=== PATIENT | male | born 1970 | race Caucasian/White ===

== ENCOUNTER 2018-03-01 19:20 | Emergency (ER) | payer OTHER ==
[~2018-03-01] VITALS: Ht 157.5 cm; Wt 68.9 kg
--- NOTE | 2018-03-01 19:36 | ED.ADGEN ---
Past History Past Medical History: Arthritis, Diverticulitis, Seizure, Other Past Surgical History: Other Smoking: Cigarettes Alcohol Use: Sober Drug Use: Marijuana (Hx in past), Methamphetamine (hx) Adult General Chief Complaint Chief Complaint ".. 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 Pt. reportedly had a seizure in shower. Seizure supposedly tonic-clonic. Seizure lasted several minutes. Onset was at 1700 hrs. No specific ill contacts. No hx of fevers. . No recent travel. No recent trauma. Patient does not take any seizure meds. Patient has been seen by Dr. Glasgow, and has follow up apt.. for EEG. She denies any dysrhythmia prior to the seizure onset. Review of Systems Review of Systems Constitutional: Denies fever or chills [] Eyes: Denies change in visual acuity, redness, or eye pain [] HENT: Denies nasal congestion or sore throat [] Respiratory: Denies cough or shortness of breath [] Cardiovascular: No additional information not addressed in HPI [] GI: Denies abdominal pain, nausea, vomiting, bloody stools or diarrhea [] : Denies dysuria or hematuria [] Musculoskeletal: Denies back pain or joint pain [] Integument: Denies rash or skin lesions [] Neurologic: Denies headache, focal weakness or sensory changes []history of tonic clonic seizure Endocrine: Denies polyuria or polydipsia [] All other systems were reviewed and found to be within normal limits, except as documented in this note. Family History Family History Noncontributory Current Medications Current Medications Current Medications Medications (Trade) Dose Ordered Sig/Nick Start Time Stop Time Status Last Admin Dose Admin Lactated Ringer's 1,000 ml @ 1,000 mls/hr Q1H 03/01/18 20:00 03/01/18 20:59 DC 03/01/18 20:23 1,000 MLS/HR Lorazepam (Ativan) 2 mg 1X ONCE 03/01/18 20:00 03/01/18 20:04 DC 03/01/18 20:23 2 MG Allergies Allergies Allergies Coded Allergies Type Severity Reaction Last Updated Verified gabapentin Allergy Mild SWELLING 03/01/18 Yes pregabalin Allergy Mild SWELLING 03/01/18 Yes ketorolac Allergy Unknown 03/01/18 Yes promethazine Allergy Unknown 03/01/18 Yes tramadol Allergy Unknown 03/01/18 Yes Physical Exam Physical Exam Constitutional: no acute distress, non-toxic appearance. [] HENT: Normocephalic, atraumatic, bilateral external ears normal, oropharynx moist, no oral exudates, nose normal. [] Eyes: PERRLA, EOMI, conjunctiva normal, no discharge. [] Neck: Normal range of motion, no tenderness, supple, no stridor. [] Old surgery scar neck Cardiovascular:Heart rate regular rhythm, no murmur [] Lungs & Thorax: Bilateral breath sounds equal at apex with scattered wheezes on auscultation [] Abdomen: Bowel sounds normal, soft, no tenderness, no masses, no pulsatile masses. [] Large midline scar on abdomen Skin: Warm, dry, no erythema, no rash. [] Back: No tenderness, no CVA tenderness. [] Extremities: No tenderness, no cyanosis, no clubbing, ROM intact, no edema. [] Neurologic: Alert and oriented X 3, normal motor function, normal sensory function, no focal deficits noted. []DTRs +2 patella and brachial. Distal sensation intact. Drawstring Knotter equal. Right-hand dominant. Psychologic: Affect normal, judgement normal, mood normal. [] Current Patient Data Vital Signs Vital Signs Date Time Temp Pulse Resp B/P (MAP) Pulse Ox O2 Delivery O2 Flow Rate FiO2 03/01/18 20:28 60 17 122/69 (86) 99 Room Air 03/01/18 19:30 98.0 Lab Results Laboratory Tests Test 03/01/18 19:30 03/01/18 19:40 Urine Collection Type Unknown Urine Color Straw Urine Clarity Clear Urine pH 7.0 Urine Specific [place] 1.010 Urine Protein Neg (NEG-TRACE) Urine Glucose (UA) Neg mg/dL (NEG) Urine Ketones (Stick) Neg mg/dL (NEG) Urine Blood Neg (NEG) Urine Nitrite Neg (NEG) Urine Bilirubin Neg (NEG) Urine Urobilinogen Dipstick 0.2 mg/dL (0.2 mg/dL) Urine Leukocyte Esterase Neg (NEG) Urine RBC 0 /HPF (0-2) Urine WBC 0 /HPF (0-4) Urine Squamous Epithelial Cells Occ /LPF Urine Bacteria 0 /HPF (0-FEW) Urine Opiates Screen Neg (NEG) Urine Methadone Screen Neg (NEG) Urine Barbiturates Neg (NEG) Urine Phencyclidine Screen Neg (NEG) Urine Amphetamine/Methamphetamine Neg (NEG) Urine Benzodiazepines Screen Neg (NEG) Urine Cocaine Screen Neg (NEG) Urine Cannabinoids Screen Neg (NEG) Urine Ethyl Alcohol Neg (NEG) White Blood Count 8.8 x10^3/uL (4.0-11.0) Red Blood Count 4.31 x10^6/uL (4.30-5.70) Hemoglobin 13.3 g/dL (13.0-17.5) Hematocrit 39.5 % (39.0-53.0) Mean Corpuscular Volume 92 fL (79-100) Mean Corpuscular Hemoglobin 31 pg (25-35) Mean Corpuscular Hemoglobin Concent 34 g/dL (31-37) Red Cell Distribution Width 12.9 % (11.5-14.5) Platelet Count 282 x10^3/uL (140-400) Neutrophils (%) (Auto) 55 % (31-73) Lymphocytes (%) (Auto) 36 % (24-48) Monocytes (%) (Auto) 7 % (0-9) Eosinophils (%) (Auto) 2 % (0-3) Basophils (%) (Auto) 1 % (0-3) Neutrophils # (Auto) 4.8 x10^3uL (1.8-7.7) Lymphocytes # (Auto) 3.1 x10^3/uL (1.0-4.8) Monocytes # (Auto) 0.6 x10^3/uL (0.0-1.1) Eosinophils # (Auto) 0.1 x10^3/uL (0.0-0.7) Basophils # (Auto) 0.1 x10^3/uL (0.0-0.2) Prothrombin Time 9.8 SEC (9.4-11.4) Prothrombin Time INR 1.0 (0.9-1.1) PTT 25 SEC (23-33) D-Dimer (Arelis) 0.41 mg/L (0.00-0.50) Sodium Level 139 mmol/L (136-145) Potassium Level 3.9 mmol/L (3.5-5.1) Chloride Level 102 mmol/L (98-107) Carbon Dioxide Level 32 mmol/L (21-32) Anion Gap 5 (6-14) L Blood Urea Nitrogen 13 mg/dL (8-26) Creatinine 0.9 mg/dL (0.7-1.3) Estimated GFR (Cockcroft-Gault) 89.7 Glucose Level 90 mg/dL (70-99) Calcium Level 8.7 mg/dL (8.5-10.1) Magnesium Level 2.3 mg/dL (1.8-2.4) Total Bilirubin 0.1 mg/dL (0.2-1.0) L Direct Bilirubin < 0.1 mg/dL (0.0-0.2) Aspartate Amino Transferase (AST) 13 U/L (15-37) L Alanine Aminotransferase (ALT) 18 U/L (16-63) Alkaline Phosphatase 91 U/L (46-116) Creatine Kinase 73 U/L (39-308) Creatine Kinase MB (Mass) 0.7 ng/mL (0.0-3.6) Creatine Kinase MB Relative Index 1.0 % (0-4) Troponin I Quantitative < 0.017 ng/mL (0-0.055) WQ-Qrt-G-Type Natriuretic Peptide 101 pg/mL (0-124) Total Protein 7.8 g/dL (6.4-8.2) Albumin 3.7 g/dL (3.4-5.0) Lipase 233 U/L (73-393) Salicylates Level 0.8 mg/dL (2.8-20.0) L Salicylate Last Dose Date Unk Salicylate Last Dose Time Unk Acetaminophen Level < 2.0 mcg/mL (10-30) L Acetaminophen Last Dose Date Unk Acetaminophen Last Dose Time Unk [place] Level 0.2 mmol/L (0.6-1.2) L [place] Last Dose Date Unknown [place] Last Dose Time Unknown Ethyl Alcohol Level < 10 mg/dL (0-10) EKG EKG My interpretation EKG shows a sinus bradycardia 56 bpm. No acute morphology. No findings of STEMI of contralateral changes.[] Radiology/Procedures Radiology/Procedures I interpretation of chest x-ray shows no acute cardiopulmonary findings. Does have hardware in neck from previous surgery. Interpretation CT of head shows no shift, mass, edema, bleed, or fracture. Does have findings of some frontal atrophy.[] I interpretation of cervical CT shows degenerative joint changes and previous hardware fixation. But no obvious acute dislocation or fracture. Course & Med Decision Making Course & Med Decision Making Pertinent Labs and Imaging studies reviewed. (See chart for details). Patient to follow-up with primary and Dr. Evangelina campuzano as previously scheduled. Seizure precautions. Review pending labs- [place]. Return if any concerns. [] Final Impression Final Impression 1. 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 Hx. BiPolar 3. Hx. Diverticulitis[] 4. Hx Past Polysubstance Abuse and IV drug abuse. 5. Subtherapeutic lithium level Dragon Disclaimer Dragon Disclaimer This electronic medical record was generated, in whole or in part, using a voice recognition dictation system. DEEPIKA GRIFFIN MD Mar 01, 2018 19:36
[2018-03-01 20:00] LABS: BASO # 0.1 x10^3/uL (0.0-0.2); BASO % 1 % (0-3); EOS # 0.1 x10^3/uL (0.0-0.7); EOS % 2 % (0-3); HEMATOCRIT 39.5 % (39.0-53.0); HEMOGLOBIN 13.3 g/dL (13.0-17.5); LYMPH # 3.1 x10^3/uL (1.0-4.8); LYMPH % 36 % (24-48); MEAN CORPUSCULAR HEMOGLOBIN 31 pg (25-35); MEAN CORPUSCULAR HGB CONC 34 g/dL (31-37); MEAN CORPUSCULAR VOLUME 92 fL (79-100); MONO # 0.6 x10^3/uL (0.0-1.1); MONO % 7 % (0-9); NEUT # 4.8 x10^3uL (1.8-7.7); NEUT % 55 % (31-73); PLATELET COUNT 282 x10^3/uL (140-400); RED BLOOD COUNT 4.31 x10^6/uL (4.30-5.70); RED CELL DISTRIBUTION WIDTH 12.9 % (11.5-14.5); WHITE BLOOD COUNT 8.8 x10^3/uL (4.0-11.0)
[2018-03-01] MEDS ORDERED: LORazepam 1 MG TABLET PO ONE (20:00)
[2018-03-01] MEDS ORDERED: IV RINGERS SOLUTION,LACTATED 1,000 ML IV SCH (20:00)
[2018-03-01 20:04] LABS: BARBITURATES NEG (NEG); BENZODIAZEPINES NEG (NEG); CANNABINOIDS NEG (NEG); COCAINE NEG (NEG); METHADONE NEG (NEG); OPIATES NEG (NEG); PHENCYCLIDINE NEG (NEG)
[2018-03-01 20:05] LABS: AMPHETAMINE/METHAMPHETAMINE NEG (NEG)
[2018-03-01 20:08] LABS: BACTERIA,URINE 0 /HPF (0-FEW); BILIRUBIN,URINE NEG (NEG); CLARITY,URINE CLEAR; COLOR,URINE STRAW; GLUCOSE,URINE NEG (NEG); NITRITE,URINE NEG (NEG); RBC,URINE 0 /HPF (0-2); SQUAMOUS EPITHELIAL CELL,UR OCC /LPF; UROBILINOGEN,URINE 0.2 mg/dL (0.2 mg/dL); WBC,URINE 0 /HPF (0-4)
[2018-03-01 20:16] LABS: ACETAMIN < 2.0 mcg/mL (10-30); ETHANOL < 10 mg/dL (0-10); SALIC 0.8 mg/dL (2.8-20.0)
[2018-03-01 20:23] LABS: ALBUMIN 3.7 g/dL (3.4-5.0); ALK PHOS 91 U/L (46-116); ALT (SGPT) 18 U/L (16-63); ANION GAP 5 (6-14); AST (SGOT) 13 U/L (15-37); BLOOD UREA NITROGEN 13 mg/dL (8-26); CALCIUM 8.7 mg/dL (8.5-10.1); CARBON DIOXIDE 32 mmol/L (21-32); CHLORIDE 102 mmol/L (98-107); CREATININE 0.9 mg/dL (0.7-1.3); DIRECT BILIRUBIN < 0.1 mg/dL (0.0-0.2); GFR 89.7; GLUCOSE 90 mg/dL (70-99); LIPASE 233 U/L (73-393); MAGNESIUM 2.3 mg/dL (1.8-2.4); POTASSIUM 3.9 mmol/L (3.5-5.1); SODIUM 139 mmol/L (136-145); TOTAL BILIRUBIN 0.1 mg/dL (0.2-1.0); TOTAL PROTEIN 7.8 g/dL (6.4-8.2)
[2018-03-01 20:28] VITALS: BP 122/69
--- NOTE | 2018-03-01 20:44 | RAD ---
Examination: CT head and cervical spine without contrast HISTORY: History of seizure, fall Exposure: One or more of the following individualized dose reduction techniques were utilized for this examination: 1. Automated exposure control 2. Adjustment of the mA and/or kV according to patient size 3. Use of iterative reconstruction technique CT HEAD INDICATION: Seizure, fall. Hx c-spine fusion 2010 COMPARISON: None Available. TECHNIQUE: 5 mm contiguous axial images were obtained from the skull base to the vertex in both bone and soft tissue algorithm. FINDINGS: No abnormal attenuation within the brain parenchyma. No evidence of acute intracranial hemorrhage. No extra-axial fluid collections. No mass effect or midline shift. Ventricular size is appropriate. Basal cisterns are patent. No fractures identified.Otero-white differentiation is preserved.Globes and orbits are within normal limits. Paranasal sinuses and mastoid air cells are clear. IMPRESSION: Unremarkable CT examination of the head without contrast, as above. Specifically, no evidence of an acute intracranial abnormality. CT CERVICAL SPINE INDICATION: Seizure, fall. Hx c-spine fusion 2010 COMPARISON: None Available. Technique: 2.5 mm contiguous axial images were obtained from the skull base through the cervicothoracic junction in both bone and soft tissue algorithm. Additional sagittal and coronal reconstructions were also performed. FINDINGS: Vertebral body height and alignment are maintained. . The lateral masses of C1 are aligned upon C2. No fractures identified. The bony canal is patent throughout. Anterior cervical fusion hardware identified at C5, C6, C7 vertebral levels. The bilateral facets are well aligned. Mild degenerative changes identified at C4-C5 vertebral levels. The paraspinous soft tissues are unremarkable. Visualized intracranial contents are unremarkable. Lung apices are clear. IMPRESSION: 1. No acute fracture of the cervical spine. Correlate clinically. 2. Cervical hardware in place. Electronically signed by: Santana Oliva MD (03/01/2018 8:40 PM) [facility]
--- NOTE | 2018-03-02 09:24 | RAD ---
EXAM: CHEST AP ONLY AP View of the chest DATE: 03/01/2018 8:11 PM INDICATION: Seizure, fall COMPARISON: No Prior FINDINGS: Lower cervical spine fusion hardware is partially profiled The heart is not enlarged. Mediastinal and hilar contours are normal. No focal parenchymal airspace opacity. No pleural effusion or pneumothorax. Equivocal lucency through a lateral right fifth rib, suspect a nondisplaced fracture which can be correlated with patient's symptoms/point tenderness. IMPRESSION: 1. No radiographic evidence for acute cardiopulmonary process. 2. Equivocal lucency through the lateral right fifth rib, suspect a nondisplaced fracture which can be correlated with patient's symptoms/point tenderness. Electronically signed by: Scar Whiting MD (03/02/2018 9:21 AM) [facility]
--- NOTE | 2018-03-02 17:37 | EKG ---
[address] [address] Test Date: 2018-03-01 Test Time: 20:25:30 Pat Name: NICO BATEMAN Department: Room: Gender: M Career Coordinator: : 1970 Requested By: DEEPIKA GRIFFIN Order Number: [id number] Reading MD: Michael Rojas MD Measurements Intervals [place] Rate: 56 P: 51 AK: 140 QRS: 53 QRSD: 76 T: 43 QT: 460 QTc: 447 Interpretive Statements SINUS RHYTHM Electronically Signed On 03-03-2018 8:39:38 CDT by Michael Rojas MD
== END 2018-03-01 20:55 | disposition home or self-care (01) ==
LOC: ER 19:20 → EEVIPCON 19:20 → ER 20:55
DX: G40.89 Other seizures (principal); R89.2 Abnormal level of other drugs, medicaments and biological substances in specimens from other organs, systems and tissues; F31.9 Bipolar disorder, unspecified; F19.10 Other psychoactive substance abuse, uncomplicated; F12.10 Cannabis abuse, uncomplicated; F15.10 Other stimulant abuse, uncomplicated; M47.892 Other spondylosis, cervical region; M19.90 Unspecified osteoarthritis, unspecified site; F17.210 Nicotine dependence, cigarettes, uncomplicated; Z88.6 Allergy status to analgesic agent; Z88.8 Allergy status to other drugs, medicaments and biological substances
CPT/HCPCS: 36415; 70450; 71045; 72125; 80048; 80076; 80178; 80307; 81001; 82553; 83690; 83735; 83880; 84443; 84484; 85025; 85379; 85610; 85730; 93005; 99285; G0480; G6039; J7120; 82003; G0479

== ENCOUNTER 2019-05-19 11:34 | Emergency (ER) | payer OTHER ==
[~2019-05-19] VITALS: Ht 157.5 cm; Wt 68.9 kg
--- NOTE | 2019-05-19 12:41 | RAD ---
EXAM: CT Head without IV contrast CLINICAL HISTORY: Seizures COMPARISON: 03/01/2018. TECHNIQUE: Routine CT of the head without contrast. Soft tissues and bone windows were reviewed. PQRS compliance statement - One or more of the following individualized dose reduction techniques were utilized for this study: 1. Automated exposure control 2. Adjustment of the mA and/or kV according to patient size 3. Use of iterative reconstruction technique FINDINGS: There is no evidence of hemorrhage, mass or extra-axial fluid collection. Raya-white differentiation is maintained with no evidence of edema. There is no mass effect or shift of the intracranial structures. The ventricles, basilar cisterns and cortical sulci are normal in size and configuration for the patients stated age. The cerebellum and brainstem are unremarkable. The calvarium demonstrates no evidence of fracture or focal lesion. There is normal aeration of the visualized paranasal sinuses and mastoid air cells. The visualized portions of the orbits are normal. IMPRESSION: No evidence for acute intracranial process. Electronically signed by: Scar Whiting MD (05/19/2019 12:38 PM) [id number]
[2019-05-19 12:53] LABS: BASO % 1 % (0-3); EOS # 0.1 x10^3/uL (0.0-0.7); EOS % 2 % (0-3); HEMATOCRIT 39.7 % (36.0-47.0); HEMOGLOBIN 13.2 g/dL (12.0-15.5); LYMPH # 2.2 x10^3/uL (1.0-4.8); LYMPH % 31 % (24-48); MEAN CORPUSCULAR HEMOGLOBIN 29 pg (25-35); MEAN CORPUSCULAR HGB CONC 33 g/dL (31-37); MEAN CORPUSCULAR VOLUME 88 fL (79-100); MONO # 0.4 x10^3/uL (0.0-1.1); MONO % 6 % (0-9); NEUT # 4.4 x10^3uL (1.8-7.7); NEUT % 61 % (31-73); PLATELET COUNT 245 x10^3/uL (140-400); WHITE BLOOD COUNT 7.2 x10^3/uL (4.0-11.0)
[2019-05-19 13:07] LABS: ALBUMIN 3.8 g/dL (3.4-5.0); ALBUMIN/GLOBULIN RATIO 0.9 (1.0-1.7); CALCIUM 8.8 mg/dL (8.5-10.1); CREATININE 0.9 mg/dL (0.6-1.0); GFR 66.3; MAGNESIUM 2.1 mg/dL (1.8-2.4); POTASSIUM 3.9 mmol/L (3.5-5.1); TOTAL BILIRUBIN 0.4 mg/dL (0.2-1.0); TOTAL PROTEIN 8.1 g/dL (6.4-8.2)
--- NOTE | 2019-05-19 13:17 | PHYS DOC ---
Past History Past Medical History: Arthritis, Diverticulitis, Seizure, Other Past Surgical History: Other Smoking: Cigarettes Alcohol Use: Sober Drug Use: Marijuana, Methamphetamine Adult General Chief Complaint Chief Complaint: SEIZURE HPI HPI Patient is a 48-year-old female who arrives in police custody from the custodial center after being sent from her doctor's office. Patient states that she has been off of her medications for a few days and patient reportedly was having shaking/seizure-like activity last night and went to see Dr. Ko today where she had similar activity. Patient reportedly has history of pseudoseizures/nonepileptic seizures. Patient was sent down from Dr. Ko's office. Patient does indicate that she had been off of her medications for a total of 5-6 days and when they had obtained her medications, patient thought that she needed to be slowly started back on the medications again. Patient was informed by staff that withdrawal from these medications should not cause seizures.[] Review of Systems Review of Systems Constitutional: Denies fever or chills [] Respiratory: Denies cough or shortness of breath [] Cardiovascular: No additional information not addressed in HPI [] Musculoskeletal: Complains of back pain [] Integument: Denies rash or skin lesions [] Neurologic: Denies headache, focal weakness or sensory changes. Patient has had witnessed shaking/seizure-like activity. [] All other systems were reviewed and found to be within normal limits, except as documented in this note. Allergies Allergies Allergies Coded Allergies Type Severity Reaction Last Updated Verified gabapentin Allergy Mild SWELLING 03/01/18 Yes pregabalin Allergy Mild SWELLING 03/01/18 Yes ketorolac Allergy Unknown 03/01/18 Yes promethazine Allergy Unknown 03/01/18 Yes tramadol Allergy Unknown 03/01/18 Yes Physical Exam Physical Exam Constitutional: Well developed, well nourished, no acute distress, non-toxic ap pearance. [] HENT: Normocephalic, atraumatic, bilateral external ears normal, oropharynx moist, no oral exudates, nose normal. [] Eyes: PERRLA, EOMI, conjunctiva normal, no discharge. [] Neck: Normal range of motion, no tenderness, supple, no stridor. [] Cardiovascular: Regular rate and rhythm[] Lungs & Thorax: Bilateral breath sounds clear to auscultation [] Abdomen: Bowel sounds normal, soft, no tenderness. [] Skin: Warm, dry, no erythema, no rash. [] Extremities: No tenderness, no cyanosis, no clubbing, ROM intact, no edema. [] Neurologic: Alert and oriented X 3, no focal deficits noted. [] Current Patient Data Lab Results Laboratory Tests Test 05/19/19 12:30 White Blood Count 7.2 x10^3/uL (4.0-11.0) Red Blood Count 4.50 x10^6/uL (3.50-5.40) Hemoglobin 13.2 g/dL (12.0-15.5) Hematocrit 39.7 % (36.0-47.0) Mean Corpuscular Volume 88 fL (79-100) Mean Corpuscular Hemoglobin 29 pg (25-35) Mean Corpuscular Hemoglobin Concent 33 g/dL (31-37) Red Cell Distribution Width 13.0 % (11.5-14.5) Platelet Count 245 x10^3/uL (140-400) Neutrophils (%) (Auto) 61 % (31-73) Lymphocytes (%) (Auto) 31 % (24-48) Monocytes (%) (Auto) 6 % (0-9) Eosinophils (%) (Auto) 2 % (0-3) Basophils (%) (Auto) 1 % (0-3) Neutrophils # (Auto) 4.4 x10^3uL (1.8-7.7) Lymphocytes # (Auto) 2.2 x10^3/uL (1.0-4.8) Monocytes # (Auto) 0.4 x10^3/uL (0.0-1.1) Eosinophils # (Auto) 0.1 x10^3/uL (0.0-0.7) Basophils # (Auto) 0.0 x10^3/uL (0.0-0.2) Sodium Level 141 mmol/L (136-145) Potassium Level 3.9 mmol/L (3.5-5.1) Chloride Level 104 mmol/L (98-107) Carbon Dioxide Level 24 mmol/L (21-32) Anion Gap 13 (6-14) Blood Urea Nitrogen 7 mg/dL (7-20) Creatinine 0.9 mg/dL (0.6-1.0) Estimated GFR (Cockcroft-Gault) 66.3 BUN/Creatinine Ratio 8 (6-20) Glucose Level 104 mg/dL (70-99) H Calcium Level 8.8 mg/dL (8.5-10.1) Magnesium Level 2.1 mg/dL (1.8-2.4) Total Bilirubin 0.4 mg/dL (0.2-1.0) Aspartate Amino Transferase (AST) 23 U/L (15-37) Alanine Aminotransferase (ALT) 15 U/L (14-59) Alkaline Phosphatase 115 U/L (46-116) Total Protein 8.1 g/dL (6.4-8.2) Albumin 3.8 g/dL (3.4-5.0) Albumin/Globulin Ratio 0.9 (1.0-1.7) L Ethyl Alcohol Level < 10 mg/dL (0-10) EKG EKG [] Radiology/Procedures Radiology/Procedures [] Impressions: PROCEDURE: CT HEAD WO CONTRAST EXAM: CT Head without IV contrast CLINICAL HISTORY: Seizures COMPARISON: 03/01/2018. TECHNIQUE: Routine CT of the head without contrast. Soft tissues and bone windows were reviewed. PQRS compliance statement - One or more of the following individualized dose reduction techniques were utilized for this study: 1. Automated exposure control 2. Adjustment of the mA and/or kV according to patient size 3. Use of iterative reconstruction technique FINDINGS: There is no evidence of hemorrhage, mass or extra-axial fluid collection. Raya-white differentiation is maintained with no evidence of edema. There is no mass effect or shift of the intracranial structures. The ventricles, basilar cisterns and cortical sulci are normal in size and configuration for the patients stated age. The cerebellum and brainstem are unremarkable. The calvarium demonstrates no evidence of fracture or focal lesion. There is normal aeration of the visualized paranasal sinuses and mastoid air cells. The visualized portions of the orbits are normal. IMPRESSION: No evidence for acute intracranial process. Electronically signed by: Scar Whiting MD (05/19/2019 12:38 PM) [id number] Course & Med Decision Making Course & Med Decision Making Pertinent Labs and Imaging studies reviewed. (See chart for details) [] Dragon Disclaimer Dragon Disclaimer This electronic medical record was generated, in whole or in part, using a voice recognition dictation system. Departure Departure: Impression: Primary Impression: Pseudoseizure Disposition: 01 HOME, SELF-CARE Condition: STABLE Referrals: MADDIE KO MD (PCP) Patient Instructions: Nonepileptic Seizures Additional Instructions: Take your prescribed medications as instructed. YANA WOLF Jr. DO May 19, 2019 13:17
[2019-05-19 13:29] LABS: BARBITURATES NEG (NEG); BENZODIAZEPINES NEG (NEG); CANNABINOIDS NEG (NEG); COCAINE NEG (NEG); METHADONE NEG (NEG); OPIATES NEG (NEG); PHENCYCLIDINE NEG (NEG)
[2019-05-19 13:30] LABS: AMPHETAMINE/METHAMPHETAMINE NEG (NEG)
[2019-05-19 13:44] LABS: BILIRUBIN,URINE NEG (NEG); CLARITY,URINE CLEAR; COLOR,URINE YELLOW; GLUCOSE,URINE NEG (NEG)
[2019-05-19 13:45] LABS: NITRITE,URINE NEG (NEG); UROBILINOGEN,URINE 0.2 mg/dL (0.2 mg/dL)
[2019-05-19 13:47] LABS: BACTERIA,URINE FEW /HPF (0-FEW); RBC,URINE OCC /HPF (0-2); SQUAMOUS EPITHELIAL CELL,UR FEW /LPF
[2019-05-19 13:48] LABS: HYALINE CASTS, URINE OCC /HPF
[2019-05-19 14:16] VITALS: BP 142/92
== END 2019-05-19 14:15 | disposition home or self-care (01) ==
LOC: ER 11:34 → EEVIPCON 11:34 → ER 14:15
DX: G40.89 Other seizures (principal); M19.90 Unspecified osteoarthritis, unspecified site; M54.9 Dorsalgia, unspecified; F17.210 Nicotine dependence, cigarettes, uncomplicated; Z88.8 Allergy status to other drugs, medicaments and biological substances; Z88.6 Allergy status to analgesic agent
CPT/HCPCS: 36415; 70450; 80053; 80307; 81001; 83605; 83735; 85025; 99285; G0480

== ENCOUNTER → 2020-03-17 | Outpatient (CLI) | payer OTHER ==
--- NOTE | 2020-03-18 10:00 | RAD ---
BILATERAL SCREENING MAMMOGRAM History: Routine screening. Comparison: None. Technique: Routine bilateral digital mammogram views were obtained. Findings: Breast Tissue Density D :The breasts are extremely dense, which lowers the sensitivity of mammography. There are no dominant masses, suspicious microcalcifications, or architectural distortion. There is a focal asymmetry involving the right inner breast at the nipple line level 6.2 cm from the nipple. This probably represents summation of normal breast parenchyma. IMPRESSION: Focal asymmetry of the right breast. Spot compression imaging recommended. Ultrasound may be needed. BI-RADS Category 0: Incomplete: Need additional imaging evaluation. The images were reviewed with computer aided detection. Patient information is entered into the reminder system with a target due date for the next screening mammogram. Mammography is the most sensitive method for finding small breast cancers, but it does not detect them all and is not a substitute for careful clinical examination. A negative mammogram does not negate a clinically suspicious finding and should not result in delay in biopsying a clinically suspicious abnormality. "Our facility is accredited by the [employer] Mammography Program." Electronically signed by: Reyes Gaston MD (03/18/2020 9:57 AM) [facility]
== END | disposition home or self-care (01) ==
LOC: MAMMO 12:50 → EEVIPCON 12:50
PROVIDERS: ATTEND Preventive Medicine Occupational Medicine
DX: Z12.31 Encounter for screening mammogram for malignant neoplasm of breast (principal)
CPT/HCPCS: 77067

== ENCOUNTER → 2020-04-19 | Outpatient (CLI) | payer OTHER ==
--- NOTE | 2020-04-19 14:33 | RAD ---
Examination: DIGITAL DIAGNOSTIC RT History: Abnormal mammogram: Comparison/Correlation: 03/17/2020 screening exam Findings: Digital spot compression imaging of the right breast in the CC projection of the inner aspect and the MLO projection at the lower aspect was performed. No suspicious persistent finding. The breasts are extremely dense which lowers the sensitivity of mammography. Impression: BI-RADS Category 1-negative. Annual screening mammography is recommended. Electronically signed by: Reyes Gaston MD (04/19/2020 2:30 PM) [id number]
== END ==
LOC: MAMMO 13:52
PROVIDERS: ATTEND Preventive Medicine Occupational Medicine
DX: R92.2 Inconclusive mammogram (principal)
CPT/HCPCS: 77065